=== PATIENT | male | born 1955 | race Two or more races ===

== ENCOUNTER 2019-06-25 05:50 | Day surgery (SDC) | payer OTHER ==
[~2019-06-25 05:50] MED LIST: ADULT LOW DOSE81 M1 PO; AVAPRO150 MG PO; B COMPLEX1 EAC1 PO; JANUMET XR 1001 EACH PO; LEVOTHYROXINE25 MCG PO; OMEGA-31000 MG PO; RECTIV30 GM; VITAMIN C500 M6 PO; VITAMIN D22000 UNIT PO; ZOCOR20 MG PO; ZOLOFT50 MG PO
== END 2019-06-25 22:58 | disposition home or self-care (01) ==
LOC: CIR.AMB 05:50 → AMB-ENDOS 11:45 → CIR.AMB 22:58
DX: K60.3 Anal fistula (principal); K62.4 Stenosis of anus and rectum; K60.1 Chronic anal fissure